=== PATIENT | female | born 1980 ===

== ENCOUNTER 2016-11-12 11:58 | Inpatient (IN) | payer BC ==
[~2016-11-12] VITALS: Ht 170.2 cm; Wt 78.2 kg
[2016-12-06] VITALS (25 sets, daily range): BP systolic 102–129; BP diastolic 65–85; PULSE 60–106; TEMP 97.6–98.3
[2016-12-06] MEDS ORDERED: ZOVIRAX 200MG200 MG PO (07:35)
[2016-12-06] MEDS ORDERED: PRENATAL1 TA7 PO (07:35)
[2016-12-06 08:19] LABS: BASO % 0.4 % (0.0-2.0); EOS # 0.1 (0.0-0.7); EOS % 1.3 % (0-4.0); GRAN # 6.1 (1.4-6.5); HEMOGLOBIN 13.3 g/dl (12.5-16.0); LYMPH # 0.9 (1.2-3.4); LYMPH % 11.7 % (20.0-51.0); MEAN CELL VOLUME 85 fl (80.0-100.0); MEAN CORPUSCULAR HEMOGLOBIN 30 pg (27.0-31.0); MEAN CORPUSCULAR HGB CONC 35 g/dl (33.0-37.0); MEAN PLATELET VOLUME 10.3 fl (7.4-10.4); MONO # 0.6 (0.1-0.6); MONO % 8.1 % (1.7-9.3); PLATELET COUNT 164 K/mm3 (130-400); RED BLOOD COUNT 4.48 M/mm3 (4.10-5.30); REDCELL DISTRIBUTION WIDTH-CV 12.7 % (11.5-14.5); WHITE BLOOD COUNT 7.8 K/mm3 (4.8-10.8)
[2016-12-07 01:23] VITALS: BP 101/69; PULSE 79; TEMP 97.8
[2016-12-07 05:00] VITALS: BP 107/70; PULSE 72; TEMP 98
[2016-12-07 08:10] VITALS: BP 124/79; PULSE 74; TEMP 97.6
[2016-12-07 16:30] VITALS: BP 108/86; PULSE 73; TEMP 97.7
[2016-12-07 19:30] VITALS: BP 114/72; PULSE 75; TEMP 98.5
[2016-12-08 07:15] VITALS: BP 114/68; PULSE 72; TEMP 98.2
[2016-12-08] MEDS ORDERED: MOTRIN 800800 MG/TAB PO (09:37)
[2016-12-08] MEDS ORDERED: PERCOCET 325 MG1 TA2 PO (09:37)
== END 2016-12-08 11:22 | disposition home or self-care (01) | DRG 775 ==
LOC: EDSTATUS 12-06 07:09 → LDR 12-06 07:48 → LDRO 12-06 11:58 → OB 12-06 16:15
PROVIDERS: Student in an Organized Health Care Education/Training Program
PROC: 10D07Z6 Extraction of Products of Conception, Vacuum, Via Natural or Artificial Opening (ICD-10-PCS; principal; 2016-12-06)
PROC: 0KQM0ZZ Repair Perineum Muscle, Open Approach (ICD-10-PCS; 2016-12-06)
PROC: 3E033VJ Introduction of Other Hormone into Peripheral Vein, Percutaneous Approach (ICD-10-PCS; 2016-12-06)
DX: O48.0 Post-term pregnancy (principal); O36.0130 Maternal care for anti-D [Rh] antibodies, third trimester, not applicable or unspecified; O70.1 Second degree perineal laceration during delivery; O76 Abnormality in fetal heart rate and rhythm complicating labor and delivery; O09.523 Supervision of elderly multigravida, third trimester; O69.1XX0 Labor and delivery complicated by cord around neck, with compression, not applicable or unspecified; Z37.0 Single live birth; Z3A.40 40 weeks gestation of pregnancy
CPT/HCPCS: J2590; J7120

== ENCOUNTER → 2016-12-10 | Outpatient (CLI) | payer BC ==
[~2016-12-10] MED LIST: MOTRIN 800800 MG/TAB PO; PERCOCET 325 MG1 TA2 PO; PRENATAL1 TA7 PO; ZOVIRAX 200MG200 MG PO
== END ==
LOC: OLC 12:49
DX: Z39.1 Encounter for care and examination of lactating mother (principal); Z71.89 Other specified counseling

== ENCOUNTER → 2016-12-17 | Outpatient (CLI) | payer BC | LOC: OLC 10:57 | DX: Z39.1 Encounter for care and examination of lactating mother (principal); Z71.89 Other specified counseling ==

== ENCOUNTER → 2016-12-20 | Outpatient (CLI) | payer BC | LOC: LAC 10:56 | DX: O92.13 Cracked nipple associated with lactation (principal) ==